=== PATIENT | male | born 1955 | race Caucasian/White ===

== ENCOUNTER 2025-03-21 08:58 | Observation (INO) | payer MEDICARE, MEDICAID, SELFPAY ==
--- NOTE | 2025-03-21 | XR_ITS ---
Examination: MRI lumbar spine, without intravenous contrast. MRI lumbar spine , with intravenous contrast. Exam date and time: March 21, 2025 1337 hours INDICATIONS: Cortical bone destruction contiguous endplates L2-L3, on CT abdomen pelvis study today, back pain this week Technique: Multiple axial, sagittal and coronal images of the lumbar spine have been obtained with the Siemens high-resolution 1.5 [employer]vina MRI scanner. Images obtained included T2 weighted fat suppressed sagittal sections, TR 3500, TE 46, T2 weighted coronal fat suppressed images, TR 3050, TE 84, T2-weighted transverse fat suppressed images, TR 30-60, TE 63, proton density transverse images, TR 4720, TE 46, and T1 weighted coronal images, TR 560, TE 13. Axial, sagittal and coronal images are obtained post intravenous injection 17 cc gadolinium. Findings: Reactive bony endplate change at the L2-L3 level Moderate lumbar spondylosis Severe disc narrowing L5-S1. No lumbar fracture L5-S1 4 mm central lumbar disc bulge L4-L5 severe acquired spinal stenosis, facet arthropathy, thickening of ligamenta flava and 5 mm disc fragment axial image 5 severe indenting the thecal sac Postcontrast images demonstrate very minimal enhancement L2-L3 without convincing enhancement of the intervening disc IMPRESSION: Significant degenerative disc disease L2-L3 but no convincing findings of osteomyelitis or discitis Severe acquired spinal stenosis L4-L5
[2025-03-21 08:58] VITALS: BMI 26.4
[2025-03-21 09:08] VITALS: BP 132/80; PULSE 89; RESP 18; TEMP 36.6; O2SAT 99
--- NOTE | 2025-03-21 09:32 | XR_ITS ---
Examination: CT abdomen and pelvis without contrast. Coronal 3-D reconstructions. Sagittal 2-D reconstructions. Date and time of exam:March 21, 2025, 10:00 AM, comparison September 18, 2015 INDICATIONS: Generalized abdominal pain today CTDI: vol (mGy): 8.84 DLP: (mGycm): 590 Technique: Axial images of the abdomen have been obtained, 3 mm slice thickness Intravenous contrast material has not been administered. Low dose protocols were performed. One or more of the following dose reduction techniques were used; automated exposure control, adjustment of the mA and/or KV according to patient size, use of iterative reconstruction technique. Findings: No focal liver or splenic lesions Gallstones No pancreatic or adrenal mass 6.5 cm left renal cyst No renal or ureteral calculi, no hydronephrosis Abdominal aortic calcification no aneurysmal dilatation 12 mm fat-containing umbilical hernia Normal appendix No bowel obstruction No diverticulitis Prostatomegaly mediolateral dimension prostate 6.5 cm No bladder mass Diffuse moderate to advanced lumbar degenerative disc disease with sclerosis and cortical bone destruction involving contiguous endplates L2-L3 IMPRESSION: Large benign left renal cyst Cholelithiasis, recommend gallbladder sonography follow-up to exclude gallbladder wall thickening Normal appendix No bowel obstruction Significant prostatomegaly Osteomyelitis discitis L2-L3 level, recommend MRI lumbar spine follow-up pre and postcontrast
--- NOTE | 2025-03-21 09:36 | XR_ITS ---
Examination: Abdomen sonogram, Limited Date and time of exam: March 21, 2025, 1035 hours INDICATIONS: Right upper abdominal pain beginning today. Technique: Real-time brown scale transabdominal sonographic images of the upper abdomen obtained. Findings: Multiple gallstones. Normal gallbladder wall 0.3 cm. Normal common bile duct 0.4 cm. Pancreas obscured by bowel gas. Liver 18.7 cm fatty infiltration no focal liver lesions. Normal hepatopedal portal venous flow. Patent IVC. IMPRESSION: Cholelithiasis, negative for cholecystitis
[2025-03-21] MEDS: ONDANSETRON INJ 2 MG/ML INJ 2 ML 4 MG IVP ×2 (09:39→10:28)
[2025-03-21] MEDS: MORPHINE SULF INJ 10 MG/ML VIAL 4 MG IVP (09:39)
[2025-03-21] MEDS: SODIUM CHLORIDE 0.9% 1000 ML 1,000 ML 999 ML IV (09:39)
--- NOTE | 2025-03-21 09:39 | EDNOTE_ITS ---
ED Abdominal Pain RME/HPI General Chief Complaint: Abdominal Pain Stated complaint: GALL BLADDER ATTACK Time seen by provider: 03/21/25 09:32 Arrival date/time: 03/21/25 08:58 Source: patient Mode of arrival: ambulatory Limitations: no limitations RME / HPI RME / HPI narrative: 69-year-old male with a history of gallbladder disease with acute onset of pain in the right upper quadrant at 0800 this morning. He states it is similar to his prior gallbladder pain. He was recommended to have surgery years ago but declined. He lives presently in his car. MD complaint: abdominal pain Onset (ago): hour(s) Consistency: constant Location: RUQ Severity: similar to previous episodes Severity scale (1-10): 10 Quality: aching Radiation: none Migration to: no migration Relieving factors: nothing Exacerbating factors: nothing Associated symptoms: denies other symptoms Related Data Previous Rx's ?Medication ?Instructions ?Recorded diphenhydramine HCl 25 mg capsule 25 mg PO Q8H PRN all ergic symptoms 10/21/21 (Benadryl) #30 caps dicyclomine 20 mg tablet 20 mg PO TID PRN abdominal p ain 08/25/23 #30 tabs Allergies Allergy/AdvReac Type Severity Reaction Status Date / Time No Known Allergies Allergy Verified 03/21/25 09:00 Review of Systems Review of Systems Systems Reviewed: All systems reviewed, normal except as documented Past Medical History Past Medical History NEUROLOGIC: Negative Neurological Disorders CARDIAC: Negative Cardiac Disorders or Congestive Heart Failure RESPIRATORY: Negative Chronic Obstructive Pulmonary Disease (COPD) GASTROINTESTINAL: Negative Gastrointestinal Disorders GENITOURINARY: Negative Genitourinary Disorders or Renal Disease MUSCULOSKELETAL: Negative Musculoskeletal Disorders ENDOCRINE: Negative Endocrine Disorders, Diabetes Mellitus Type 1 or Diabetes Mellitus Type 2 HEMATOLOGIC: Negative Blood Disorders OTHER HISTORY: Negative Autoimmune Disease Family History FAMILY HISTORY: Positive Family Cardiac Disorders; Negative Family Psychiatric Problems, Family Respiratory Disorders, Family Gastrointestinal Problems, Family Cancer, Family Surgery or Family Anesthesia Reaction Social History SMOKING STATUS: Never smoker ED Exam General Limitations: Present no limitations General appearance: Present alert and in no apparent distress Head Head exam: Present atraumatic Eye Eye exam: Present normal appearance, PERRL and EOMI ENT ENT exam: Present normal exam, normal oropharynx and mucous membranes moist Neck Neck exam: Present normal inspection, full ROM and trachea midline Chest Chest inspection: Present normal inspection and symmetric chest wall rise Respiratory Respiratory exam: Present normal lung sounds bilaterally Cardiovascular Cardiovascular exam: Present regular rate, normal rhythm and normal heart sounds Abdominal Exam Abdominal exam: Present soft, tenderness, guarding and normal bowel sounds Abdominal tenderness: Present RUQ Rectal Exam Rectal exam: Present deferred Extremities Exam Extremities exam: Present normal inspection and full ROM Back Exam Back exam: Present normal inspection and full ROM Neurological Exam Neurological exam: Present alert, oriented X3 and CN II-XII intact Psychiatric Psychiatric exam: Present normal affect and normal mood Skin Skin exam: Present warm, dry, intact and normal color Course Quality Measures none Orders Category Date Time Status Poly Packer And Heat Sealer STAT Care 03/21/25 09:32 Active Continuous Pulse Oximetry STAT Care 03/21/25 09:32 Completed Insert IV STAT Care 03/21/25 09:32 Active MRI Screening NOW Care 03/21/25 12:03 Active NPO STAT Care 03/21/25 09:[address] abdomen pelvis wo con Stat Exams 03/21/25 09:32 Completed MR lumbar spine wo/w con Stat Exams 03/21/25 Ordered US gall bladder Stat Exams 03/21/25 09:36 Completed CBC Stat Lab 03/21/25 09:48 Completed Comprehensive Metabolic Panel Stat Lab 03/21/25 09:48 Completed Lipase Stat Lab 03/21/25 09:48 Completed Magnesium Stat Lab 03/21/25 09:48 Completed Prothrombin Time with INR Stat Lab 03/21/25 09:48 Completed Urinalysis Stat Lab 03/21/25 10:29 Completed HYDROmorphone INJ [Dilaudid Inj] Med 03/21/25 10:16 Discontinued 1 mg IVP X1 ONE Morphine Inj Med 03/21/25 09:32 Discontinued 4 mg IVP X1 ONE Ondansetron Inj [Zofran Inj] Med 03/21/25 09:33 Discontinued 4 mg IVP X1 ONE Ondansetron Inj [Zofran Inj] Med 03/21/25 10:16 Discontinued 4 mg IVP X1 ONE Pantoprazole Inj [Protonix Inj] Med 03/21/25 09:36 Discontinued 40 mg IVP X1 ONE Sodium Chloride 0.9% 1000 ml [Ns] 1,000 ml Med 03/21/25 09:32 Discontinued IV 999 mls/hr Vital Signs Vital signs: Vital Signs Temperature 98 F 03/21/25 09:08 Pulse Rate 89 03/21/25 09:08 Respiratory Rate 18 08/29/25 09:08 Blood Pressure 132/80 H 03/21/25 09:08 Pulse Oximetry (%) 99 03/21/25 09:08 Oxygen Delivery Method Room Air 03/21/25 09:08 Pulse ox is 99% on room air which is adequate. Abdominal Pain MDM Patient data External records reviewed:: [facility] previous records Clinical information provided by:: patient Social determinants that could affect healthcare access:: housing Patient has the following chronic illnesses:: cholelithiasis How is presenting disease/condition affected by chronic disease/condition?: caused by Evaluation data The following diagnostics were reviewed and interpreted by me:: lab results and radiology exam(s) Lab and/or radiology exams considered but not ordered:: None Interpretation Summary: Ordering Physician: Hunter Alfaro MD Date of Service: 03/21/25 Procedure(s): CT abdomen pelvis wo con Accession Number(s): [id number] cc: Hunter Alfaro MD; Leo Bowen MD; NO PRIMARY/FAMILY,PHYSICIAN~ Examination: CT abdomen and pelvis without contrast. Coronal 3-D reconstructions. Sagittal 2-D reconstructions. Date and time of exam:March 21, 2025, 10:00 AM, comparison September 18, 2015 INDICATIONS: Generalized abdominal pain today CTDI: vol (mGy): 8.84 DLP: (mGycm): 590 Technique: Axial images of the abdomen have been obtained, 3 mm slice thickness Intravenous contrast material has not been administered. Low dose protocols were performed. One or more of the following dose reduction techniques were used; automated exposure control, adjustment of the mA and/or KV according to patient size, use of iterative reconstruction technique. Findings: No focal liver or splenic lesions Gallstones No pancreatic or adrenal mass 6.5 cm left renal cyst No renal or ureteral calculi, no hydronephrosis Abdominal aortic calcification no aneurysmal dilatation 12 mm fat-containing umbilical hernia Normal appendix No bowel obstruction No diverticulitis Prostatomegaly mediolateral dimension prostate 6.5 cm No bladder mass Diffuse moderate to advanced lumbar degenerative disc disease with sclerosis and cortical bone destruction involving contiguous endplates L2-L3 IMPRESSION: Large benign left renal cyst Cholelithiasis, recommend gallbladder sonography follow-up to exclude gallbladder wall thickening Normal appendix No bowel obstruction Significant prostatomegaly Osteomyelitis discitis L2-L3 level, recommend MRI lumbar spine follow-up pre and postcontrast Dictated By: Leo Bowen MD Signed By: <Electronically signed by Leo Bowen MD in OV> 03/21/25 1030 Ordering Physician: Hunter Alfaro MD Date of Service: 03/21/25 Procedure(s): US gall bladder Accession Number(s): [id number] cc: Hunter Alfaro MD; Leo Bowen MD; NO PRIMARY/FAMILY,PHYSICIAN~ Examination: Abdomen sonogram, Limited Date and time of exam: March 21, 2025, 1035 hours INDICATIONS: Right upper abdominal pain beginning today. Technique: Real-time brown scale transabdominal sonographic images of the upper abdomen obtained. Findings: Multiple gallstones. Normal gallbladder wall 0.3 cm. Normal common bile duct 0.4 cm. Pancreas obscured by bowel gas. Liver 18.7 cm fatty infiltration no focal liver lesions. Normal hepatopedal portal venous flow. Patent IVC. IMPRESSION: Cholelithiasis, negative for cholecystitis Dictated By: Leo Bowen MD Signed By: <Electronically signed by Leo Bowen MD in OV> 03/21/25 1116 Medications / Prescriptions Medications or Prescriptions considered but not ordered:: dilaudid Medication administrations:: Medication Administration History Discontinued Medications Hydromorphone HCl (Hydromorphone Inj 2 Mg/Ml Vial) 1 mg IVP X1 ONE Stop: 03/21/25 10:17 Last Admin: 03/21/25 10:29 Dose: 1 mg Documented By: RIKI Sodium Chloride (Ns) 1,000 mls @ 999 mls/hr IV .Q1H1M ONE Stop: 03/21/25 10:32 Last Infusion: 03/21/25 10:40 Dose: Infused Documented By: Admin: 03/21/25 09:39 Dose: 999 mls/hr Documented By: TM Morphine Sulfate (Morphine Sulf Inj 10 Mg/Ml Vial) 4 mg IVP X1 ONE Stop: 03/21/25 11:32 Last Admin: 03/21/25 09:39 Dose: 4 mg Documented By: TM Ondansetron HCl (Ondansetron Inj 2 Mg/Ml Inj 2 Ml) 4 mg IVP X1 ONE Stop: 03/21/25 09:34 Last Admin: 03/21/25 09:39 Dose: 4 mg Documented By: TM Ondansetron HCl (Ondansetron Inj 2 Mg/Ml Inj 2 Ml) 4 mg IVP X1 ONE; Protocol Stop: 03/21/25 10:17 Last Admin: 03/21/25 10:28 Dose: 4 mg Documented By: TM Pantoprazole Sodium (Pantoprazole Inj 40 Mg Vial) 40 mg IVP X1 ONE Stop: 03/21/25 09:37 Last Admin: 03/21/25 09:49 Dose: 40 mg Documented By: TM See above Consultations Consultation(s) initiated? (list below): Yes Consultation #1 (Physician, Specialty, Details): I spoke with surgeon Dr. Peters. Discussed patients PMHx, HPI, ED course, exam findings, labs, and radiology results. Surgeon agrees to accept the patient for admission for surgery. Diagnosis Differential diagnosis abdominal pain: abdominal pain Most likely diagnosis given after review of the tests above:: Cholecystitis, cholelithiasis Admission Indicated Admission indicated?: indicated Admission Request Was there a request for admission?: Yes Disposition Plan Disposition Plan: Admit Discharge Plan Plan Patient Disposition: Other Care w/in Hosp ([facility]) Prescriptions/Referrals Prescriptions/Med Rec: No Action diphenhydramine HCl [Benadryl] 25 mg capsule 25 mg PO Q8H PRN (Reason: allergic symptoms) Qty: 30 0RF dicyclomine 20 mg tablet 20 mg PO TID PRN (Reason: abdominal pain) Qty: 30 0RF Referrals: No Primary/Family,Physician [Primary Care Provider] - In 1 week Problem List Clinical Impression: Cholecystitis, Cholelithiasis Patient/Caregiver Discharge Instructions Print Language: [place] Stand Alone Forms: [employer] Award Info., Patient Portal Info Letter
[2025-03-21 09:53] VITALS: PULSE 57
--- NOTE | 2025-03-21 09:55 | PC.NURSE ---
PT REPORTS HE BEGAN HAVING PAIN THIS MORNING IN HIS RUQ ABDOMEN. REPORTS HE HAD SAME PAIN ABOUT A YEAR AGO AND IT WAS HIS GALLBLADDER BUT THEY DID NOT REMOVE IT. PT GIVEN PAIN MEDICATION, BOLUS INFUSING, PT NOW AT CT, WILL CONT W/POC.
[2025-03-21 09:58] LABS: Basophils # (Auto) 0.1 Thou/mm3 (0.0-0.2); Basophils % (Auto) 1 % (0-2.5); Eosinophils # (Auto) 0.3 Thou/mm3 (0.0-0.5); Eosinophils % (Auto) 3 % (0-10); Hematocrit 44.9 % (41.0-53.0); Hemoglobin 15.2 g/dL (13.5-16.0); Immature Granulocytes Auto 0.03 Thou/mm3 (0.00-0.00); Lymphocytes # (Auto) 1.0 Thou/mm3 (1.0-4.8); Lymphocytes % (Auto) 13 % (10-50); Mean Corpuscular HGB Conc 33.9 g/dl (31.0-37.0); Mean Corpuscular Hemoglobin 30.1 pg (25.0-35.0); Mean Corpuscular Volume 89 fL (80-100); Monocytes # (Auto) 0.6 Thou/mm3 (0.0-0.8); Monocytes % (Auto) 7 % (0-12); Neutrophils # (Auto) 5.8 Thou/mm3 (1.8-7.7); Neutrophils % (Auto) 75 % (37-80); Nucleated Red Blood Cell # 0.00 Thou/mm3 (0.00-0.00); Nucleated Red Blood Cell % 0 /100 WBC (0); Platelet Count 186 Thou/mm3 (140-440); RDW Standard Deviation 43.0 fL (35.1-43.9); Red Blood Count 5.05 Miln/mm3 (4.50-5.90); White Blood Count 7.7 Thou/mm3 (3.8-10.6)
[2025-03-21 10:17] LABS: Alanine Aminotransferase 19 U/L (10-49); Albumin, Serum 3.7 gm/dL (3.4-4.8); Albumin/Globulin Ratio 1.9 (1.2-2.2); Alkaline Phosphatase 75 U/L (46-116); Anion Gap 10 (7-16); Aspartate Amino Transferase 18 U/L (0-34); BUN/Creatinine Ratio 16 Ratio (12-20); Bilirubin,Total 0.6 mg/dL (0.3-1.2); Blood Urea Nitrogen 16 mg/dL (9-23); Calcium 9.6 mg/dL (8.3-10.6); Calcium (Corrected) 9.8 mg/dL (8.5-10.1); Carbon Dioxide 26.2 mMol/L (20.0-31.0); Chloride 108 mMol/L (98-107); Creatinine (Component) 1.0 mg/dL (0.6-1.3); Estimated Creatinine Clearance 75.4 mL/min (>60); Globulin 1.9 gm/dL (2.3-3.5); Glucose 144 mg/dL (74-106); Lipase 33 U/L (12-53); Magnesium 2.0 mg/dL (1.6-2.6); Osmolality,Calculated 291 (275-295); Potassium 4.4 mMol/L (3.4-5.1); Sodium 144 mMol/L (136-145); Total Protein 5.6 gm/dL (5.7-8.2); eGFR > 60 See Note
[2025-03-21 10:28] LABS: INR 1.0 (0.9-1.3); Prothrombin Time 11.3 Seconds (9.0-12.2)
[2025-03-21] MEDS: HYDROmorphone INJ 2 MG/ML VIAL 1 MG IVP (10:29)
[2025-03-21 10:31] VITALS: BP 159/90; PULSE 64; RESP 18; O2SAT 97
[2025-03-21 10:34] LABS: Collection Type, Urine Clean Catch; Squamous Epithelial Cell,Urine 0 /hpf (0-5)
[2025-03-21 10:49] LABS: Bacteria,Urine Rare; Bilirubin,Urine Negative (Negative); Blood,Urine Negative (Negative); Clarity,Urine Clear (Clear/Hazy); Color,Urine Lt-Yellow (Lt Yel-Yel); Glucose, Urine Negative (Negative); Ketones,Urine Negative (Negative); Leukocyte Esterase,Urine Negative (Negative); Nitrite,Urine Negative (Negative); PH,Urine 6.5 (5.0-7.0); Protein,Urine Negative (Neg - Trace); RBC,Urine 1 /hpf (0-3); Specific Gravity,Urine 1.028 (1.001-1.035); Urobilinogen,Urine Negative mg/dL (0.0-1.0); WBC,Urine 1 /hpf (0-5)
[2025-03-21 11:55] VITALS: BP 126/59; PULSE 60; RESP 17; TEMP 36.5; O2SAT 97
[2025-03-21] MEDS: MIDAZOLAM INJ 1 MG/ML VIAL 2 ML 2 MG IVP (13:13)
[2025-03-21] MEDS: PIPER/TAZO 3.375 GM PREMIX 3.375 GM/50 ML BAG IV (13:13)
[2025-03-21] MEDS: SODIUM CHLORIDE 0.9% 1000 ML 1,000 ML 100 ML IV (15:11)
--- NOTE | 2025-03-21 17:16 | PC.NURSE ---
PT DECIDED TO LEAVE AMA, FLOOR RN UPDATED, DR. BRIONES UPDATED. PT WAS EDUCATED ON RISK OF LEAVING AMA, BUT FELT HE NEEDED TO LEAVE TO CARE FOR HIS DOG, HE IS THE ONLY ONE TO CARE FOR IT AND IT IS CURRENTLY IN HIS CAR. PT WILL CALL DR. CAMPO OFFICE TO SCHEDULE F/U OUT PATIENT.
== END 2025-03-21 17:20 | disposition left against medical advice (07) ==
LOC: SERX 12:53 → SERHOLD 16:58
PROVIDERS: Admitting Provider Surgery; Emergency Provider Family Medicine; Visit Provider Surgery
DX: K80.10 Calculus of gallbladder with chronic cholecystitis without obstruction (principal); N40.0 Benign prostatic hyperplasia without lower urinary tract symptoms; M86.9 Osteomyelitis, unspecified; M48.061 Spinal stenosis, lumbar region without neurogenic claudication; M51.369 Other intervertebral disc degeneration, lumbar region without mention of lumbar back pain or lower extremity pain; Z53.29 Procedure and treatment not carried out because of patient's decision for other reasons
CPT/HCPCS: 36415; 72158; 74176; 76705; 80053; 81001; 83690; 83735; 85025; 85610; 96361; 96374; 96375; 96376; 99284; A9577; G0378; J1100; J1171; J2250; J2270; J2405; J2470; J2543; J2704; J3010; J3490; J7030